=== PATIENT | female | born 1940 | race Caucasian/White ===

== ENCOUNTER 2020-10-01 06:53 | Day surgery (SDC) | payer MEDICARE ==
[~2020-10-01] VITALS: Ht 160 cm; Wt 79.4 kg
[~2020-10-01 06:53] MED LIST: CALTRATE 600+D31 TAB PO; CELECOXIB200 MG PO; CO Q 10100 MG PO; FEVERFEW380 MG PO; MILK THISTLE175 MG PO; RESTORIL15 M1 PO; SIMVASTATIN40 MG PO; ZINC100 M1 PO
[2020-10-01 09:35] VITALS: BP 142/81
== END 2020-10-01 10:15 | disposition home or self-care (01) ==
LOC: ORM 06:53
PROVIDERS: ATTEND Anesthesiology Pain Medicine
DX: M46.1 Sacroiliitis, not elsewhere classified (principal)